=== PATIENT | female | born 1955 | race Two or more races ===

== ENCOUNTER 2018-06-18 13:40 | Observation (INO) | payer BC, OTHER ==
--- NOTE | 2018-06-18 13:59 | PDOC ---
History of Present Illness - General Stated Complaint: DIZZINESS Time Seen by Provider: 06/18/18 13:51 - History of Present Illness Initial Comments: 06/18/18 13:58 63 yo F with h/o HTN, HLD BIBA with dizziness. Patient reports acute onset of "room spinning," prior to arrival, after patient stood up from seating position on bus. Dizziness resolved spontaneously in ambulance vehicle. Patient reports dizziness was present with eyes closed. Endorsed one episode of bilious, non bloody emesis that is now resolved. Reports similar symptom of spinning sensation yesterday morning and afternoon lasting for 1 minute and resolving spontaneously. Patient denies hearing loss, headache, tinnitus, facial pain/weakness, slurred speech, palpitations, orthopnea, PND, leg pain/swelling, F,C, CP, SOB, urinary complaints, abdominal pain, diarrhea, constipation, weakness, sensory changes. PMHx: as noted above. Denies h/o CVA/TIA. ROS: as noted SHx: Denies Etoh, tobacco, IVDA. Denies recent travel, medication change. Allergies: PCN-Rash Past History - Past Medical History Allergies/Adverse Reactions: Allergies Allergy/AdvReac Type Severity Reaction Status Date / Time No Allergy Information Allergy Verified 06/18/18 14:09 Available Home Medications: Ambulatory Orders Amlodipine Besylate 5 mg PO DAILY 06/18/18 Simvastatin 20 mg PO DAILY 06/18/18 HTN: Yes Hypercholesterolemia: Yes - Suicide/Smoking/Psychosocial Hx Smoking History: Never smoked Hx Alcohol Use: No Substance Use Type: None Review of Systems - Review of Systems Comments:: 06/18/18 13:58 GENERAL/CONSTITUTIONAL: No fever or chills. No weakness. HEAD, EYES, EARS, NOSE AND THROAT: No change in vision. No ear pain or discharge. No sore throat. CARDIOVASCULAR: No chest pain or shortness of breath RESPIRATORY: No cough, wheezing, or hemoptysis. GASTROINTESTINAL: No nausea, vomiting, diarrhea or constipation. GENITOURINARY: No dysuria, frequency, or change in urination. MUSCULOSKELETAL: No joint or muscle swelling or pain. No neck or back pain. SKIN: No rash NEUROLOGIC: + Dizziness. No headache, loss of consciousness, or change in strength/sensation. ENDOCRINE: No increased thirst. No abnormal weight change HEMATOLOGIC/LYMPHATIC: No anemia, easy bleeding, or history of blood clots. ALLERGIC/IMMUNOLOGIC: No hives or skin allergy. *Physical Exam - Physical Exam Comments: 06/18/18 13:58 GENERAL: Awake, alert, and fully oriented, in no acute distress HEAD: No signs of trauma, normocephalic, atraumatic EYES: PERRLA, EOMI, sclera anicteric, conjunctiva clear ENT: Auricles normal inspection, hearing grossly normal, nares patent, oropharynx clear without exudates. Moist mucosa NECK: Normal ROM, supple, no lymphadenopathy, JVD, or masses LUNGS: No distress, speaks full sentences, clear to auscultation bilaterally HEART: Regular rate and rhythm, normal S1 and S2, no murmurs, rubs or gallops, peripheral pulses normal and equal bilaterally. ABDOMEN: Soft, nontender, normoactive bowel sounds. No guarding, no rebound. No masses EXTREMITIES : Normal inspection, Normal range of motion, no edema. No clubbing or cyanosis. NEUROLOGICAL: Absent nystagmus. Reproducible dizziness with head rotation. Cranial nerves II through XII grossly intact. Normal speech, normal gait, no focal sensorimotor deficits SKIN: Warm, Dry, normal turgor, no rashes or lesions noted ED Treatment Course - LABORATORY CBC & Chemistry Diagram: 06/18/18 14:40 06/18/18 14:40 Medical Decision Making - Medical Decision Making 06/18/18 14:20 63 yo F with h/o HTN, HLD BIBA with dizziness. VSS, AF, A&OX3. + Repositional dizziness with head rotation. Will asess for CVA/TIA, VBI, cardiac dysarrythmia , electrolyte abnml, metabolic and toxic derangements, acid-base disturbances, infection. Patient currently asymptomatic. Likley peripheral vs. central vertigo. Will reassess. ED Course: EKG: NSR with absent CHRISTI, STD. Normal interval duration and axis. + LVH. 06/18/18 16:12 Patient with vertigo. Meclizine 25 mg PO CBC,CMP: Unremarkable Trop: Neg 06/18/18 16:55 CTH :Periventricular white matter lucency, possible chronic microvascular dz. + Type I chiari Malformation. Reccomend nonemergent MRI. 06/18/18 17:20 Plan to admit obs. Pt. endorsed to sofiya Bae. Admit to Dr. Oliver. *DC/Admit/Observation/Transfer Diagnosis at time of Disposition: Vertigo - Discharge Dispostion Condition at time of disposition: Stable Decision to Admit order: Yes - Referrals Referrals: Evelina Yo [Primary Care Provider] - - Patient Instructions Printed Discharge Instructions: DI for Benign Paroxysmal Positional Vertigo Additional Instructions: Please return to the emergency department with any new or worsening symptoms or concerns. Please follow up with your primary care physician within 72 hours. - Post Discharge Activity - Attestations Physician Attestion: 06/18/18 13:59 I attest to the information provided in this note.
[2018-06-18 14:44] LABS: BASO % 0.7 % (0-2.0); EOS % 0.2 % (0-4.5); HEMATOCRIT 38.6 % (32.4-45.2); HEMOGLOBIN 13.5 GM/dL (10.7-15.3); LYMPH % 15.2 % (8-40); MCH 31.5 pg (25.7-33.7); MCHC 35.1 g/dl (32.0-36.0); MEAN CELL VOLUME 89.8 fl (80-96); MEAN PLT VOLUME 9.4 fl (7.5-11.1); NEUT % 78.9 % (42.8-82.8); PLATELET COUNT 272 K/MM3 (134-434); RDW 13.4 % (11.6-15.6)
[2018-06-18 15:18] LABS: ALBUMIN 4.2 g/dl (3.4-5.0); ALK PHOS 72 U/L (45-117); ANION GAP 10 MMOL/L (8-16); BILIRUBIN,TOTAL 0.3 mg/dL (0.2-1); BLOOD UREA NITROGEN 14 mg/dL (7-18); CALCIUM 9.2 mg/dL (8.5-10.1); CHLORIDE 101 mmol/L (98-107); CO2 25 mmol/L (21-32); CREATININE 0.6 mg/dL (0.55-1.3); GLUCOSE,RANDOM 115 mg/dL (74-106); POTASSIUM 3.9 mmol/L (3.5-5.1); SGOT/AST 23 U/L (15-37); SGPT/ALT 28 U/L (13-61); SODIUM 136 mmol/L (136-145)
--- NOTE | 2018-06-18 15:19 | EKG ---
Test Reason : Blood Pressure : / mmHG Vent. Rate : 070 BPM Atrial Rate : 070 BPM P-R Int : 174 ms QRS Dur : 072 ms QT Int : 420 ms P-R-T Axes : 036 -18 030 degrees QTc Int : 453 ms POOR DATA QUALITY, INTERPRETATION MAY BE ADVERSELY AFFECTED NORMAL SINUS RHYTHM VOLTAGE CRITERIA FOR LEFT VENTRICULAR HYPERTROPHY ABNORMAL ECG WHEN COMPARED WITH ECG OF 05-APR-2011 09:42, NO SIGNIFICANT CHANGE WAS FOUND Confirmed by Miguelangel Velásquez MD ([id number]) on 06/18/2018 3:19:40 PM Referred By: Confirmed By:Miguelangel Velásquez MD
[2018-06-18] MEDS ORDERED: MECLIZINE HCL 25 MG TABLET (FP) PO ONE (16:12)
[2018-06-18] MEDS ORDERED: MECLIZINE HCL 12.5 MG TABLET ONE (16:16)
[2018-06-18 16:29] LABS: URINE APPEARANCE CLEAR; URINE BILIRUBIN NEGATIVE (<2.0 mg/dL); URINE COLOR LTYELLOW; URINE GLUCOSE (UA) NEGATIVE (NEGATIVE); URINE KETONE NEGATIVE (NEGATIVE); URINE LEUK ESTERASE NEGATIVE (NEGATIVE); URINE NITRITE NEGATIVE (NEGATIVE); URINE PROTEIN NEGATIVE (NEGATIVE); URINE UROBILINOGEN NEGATIVE mg/dL (0.2-1.0)
[2018-06-18 17:11] LABS: URINE HYALINE CAST 1 /lpf; URINE MUCUS RARE
[2018-06-18] MEDS ORDERED: SODIUM CHLORIDE 0.9% 500 ML INFUS.BAG IV ONE (17:51)
[2018-06-18] MEDS ORDERED: LORazepam 2 MG/ML SDV VIAL ONE (18:00)
--- NOTE | 2018-06-18 18:02 | PDOC ---
Attending Attestation - Resident Resident Name: David Ivan - ED Attending Attestation I have performed the following: I have examined & evaluated the patient, The case was reviewed & discussed with the resident, I agree w/resident's findings & plan, Exceptions are as noted - HPI HPI: 06/18/18 15:57 The patient is a 63 year old female with a significant past medical history of HTN, HLD BIBA with complaint of acute onset of "room spinning" after standing up from seating position on bus just prior to arrival. The patient reports dizziness with eyes closed. She also reports posterior headache of gradual onset since this morning. She reports one episode of bilious, non bloody emesis that is now resolved. She states she experienced similar dizziness yesterday which resolved after about a minute. She denies experiencing these symptoms prior to yesterday. She denies any symptoms now. Patient denies hearing loss, tinnitus, facial pain/weakness, slurred speech, palpitations, orthopnea, PND, leg pain/swelling, F,C, CP, SOB, urinary complaints, abdominal pain, diarrhea, constipation, focal weakness, sensory changes. SHx: Denies Etoh, tobacco, IVDA. Denies recent travel, medication change. = - Physicial Exam PE: 06/18/18 17:59 GENERAL: Awake, alert, and fully oriented, appears uncomfortable HEAD: No signs of trauma EYES: PERRLA, EOMI, sclera anicteric, conjunctiva clear ENT: Hearing grossly normal, nares patent, oropharynx clear without exudates. Moist mucosa NECK: Normal ROM, supple, no lymphadenopathy, JVD, or masses LUNGS: Breath sounds equal, clear to auscultation bilaterally. No wheezes, and no crackles HEART: Regular rate and rhythm, normal S1 and S2, no murmurs, rubs or gallops ABDOMEN: Soft, nontender, normoactive bowel sounds. No guarding, no rebound. No masses EXTREMITIES: Normal range of motion, no edema. No clubbing or cyanosis. No cords , erythema, or tenderness BACK: No midline spinal tenderness in cervical/thoracic/lumbar region NEUROLOGICAL: Normal speech, cranial nerves intact, negative pronator drift, 5/ 5 strength in all 4 extremities, normal sensation to light touch in all 4 extremities, unable to cooperate with FNF due to dizziness, gait deferred SKIN: Warm, Dry, normal turgor, no rashes or lesions noted." - Medical Decision Making 06/18/18 18:03 63yo F hx HTN, HL presents to the ED with room spinning dizziness. Vitals wnl. Pt initially stating vertigo has resolved, now pt vertiginous again with gradual onset posterior headache. Pt threw up the meclizine. CTH neg. COncern for central etiology of vertigo, plan to treat with IV ativan 0.5mg, zofran and fluids and obtain MRI. Pt admitted to Dr. John for further mgmt. Case discussed in detail with admitting physician including history, physical exam and ancillary studies. Admitting physician has assumed care for the patient, will follow all pending diagnostics and will complete the evaluation and treatment.
[2018-06-18] MEDS ORDERED: ONDANSETRON 4 MG/2 ML VIAL ONE (18:05)
--- NOTE | 2018-06-18 19:14 | HP ---
Admitting History and Physical - Primary Care Physician PCP: none - Admission Chief Complaint: Dizziness, nausea and vomiting History of Present Illness: 63 y/o f with h/o HTN, and HLD presents to ED via Ambulance due to new onset vertigo. Pt reports symptoms started during the day on 06/17. Her symptoms subsided slightly but returned on the morning of 06/18, which severely interrupted her ADLs, there was progression of symptoms to include nausea and vomiting. Her symptoms are present both at rest and with ambulation. She denies CP/SOB, palpitations, fever, chills or myalgias. No recent travel or URI/sick contact. History Source: Patient, Medical Record Limitations to Obtaining History: No Limitations - Past Medical History OFFICE MESSENGER: No: Alzheimer's, CVA, Dementia, Migraine, Multiple Sclerosis, Peripheral Neuropathy, Parkinson's, Seizure, Syncope, TIA, Vertigo, Other Cardiovascular: Yes: HTN. No: AFIB, Aneurysm, Aortic Insufficiency, Aortic Stenosis, CAD, CHF, Deep Vein Thrombosis, Hyperlipdemia, MA, Mitral Insufficiency, Mitral Stenosis, Murmur, Pulmonary Hypertension, Other Pulmonary: No: Asthma, Bronchitis, Cancer, COPD, O2 Dependent, Pneumonia, Previously Intubated, Pulmonary Embolus, Pulmonary Fibrosis, Sleep Apnea, Other Gastrointestinal: No: Ascites, Cancer, Constipation, Crohn's Disease, Diverticulitis, Diverticulosis, Esophageal Varices, Gastritis, GERD, GI Bleed, Hemorrhoids, Hiatal Hernia, Inflamatory Bowel Disease, Irritable Bowel Disease, Pancreatitis, Peptic Ulcer Disease, Ulcerative Colitis, Other Hepatobiliary: No: Cirrhosis, Cholelithiasis, Cholecystitis, Choledocholithiasis , Hepatitis A, Hepatitis B, Hepatitis C, Other Renal/: No: Renal Failure, Renal Inusuff, BPH, Cancer, Hematuria, Hemodialysis , Neurogenic Bladder, Renal Calculi, UTI, Other ...: 2 ...Para: 2 Heme/Onc: No: Anemia, B12 Deficiency, Bleeding Disorder, Cancer, Current Chemotherapy, Current Radiation Therapy, Hemochromatosis, Hypercoaguable State, Myeloproliferative Synd, Sickle Cell Disease, Sickle Cell Trait, Thrombocytopenia, Other Infectious Disease: No: AIDS, C-Diff, Herpes Zoster, HIV, MRSA, STD's, Tuberculosis, VREF, Other Psych: No: Addictions, Anxiety, Bipolar, Depression, Panic, Psychosis, Schizophrenia, Other Musculoskeletal: No: Bursitis, Chronic low back pain, Hemiparesis, Hemiplegia, Osteoarthritis, Paraplegia, Other Rheumatology: No: Fibromyalgia, Gout, Lupus, Rheumatoid Arthritis, Sarcoidosis, Vasculitis, Other Endocrine: No: Koppel's Disease, Kecia's Disease, Diabetes Insipidus, Diabetes Mellitus, Hyperparathyroidism, Hyperthyroidism, Hypothyroidism, Osteopenia, SIADH, Other Dermatology: No: Basal Cell, Cellulitis, Eczema, Melanoma, Psoriasis, Squamous Cell, Other Additional Past Medical History: Hyperlipidemia - Past Surgical History Past Surgical History: Yes: None - Advance Directives Advance Directives: Yes: Health Care Proxy (DAughter Amy Rogers: [phone]) - Smoking History Smoking history: Never smoked Have you smoked in the past 12 months: No - Alcohol/Substance Use Hx Alcohol Use: No History of Substance Use: reports: None - Social History Usual Living Arrangement: Yes: With Spouse (resides in [place] apartment) ADL: Independent 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 History of Recent Travel: No Home Medications - Allergies Allergies/Adverse Reactions: Allergies Allergy/AdvReac Type Severity Reaction Status Date / Time Penicillins Allergy Severe Hives Verified 06/18/18 21:11 - Home Medications Home Medications: Ambulatory Orders Amlodipine Besylate 5 mg PO DAILY 06/18/18 Simvastatin 20 mg PO DAILY 06/18/18 Family Disease History - Family Disease History Family Disease History: Heart Disease: Father (), Mother (HTN) Review of Systems - Review of Systems Constitutional: denies: No Symptoms, Chills, Diaphoresis, Fever, Lethargy, Loss of Appetite, Malaise, Night Sweats, Unintentional Wgt. Loss, Weakness, Other Eyes: reports: No Symptoms HENT: reports: No Symptoms Neck: reports: No Symptoms Cardiovascular: reports: No Symptoms Respiratory: reports: No Symptoms Gastrointestinal: reports: No Symptoms Genitourinary: reports: No Symptoms Musculoskeletal: reports: No Symptoms Integumentary: reports: No Symptoms Neurological: reports: Dizziness, Headache, Unsteady Gait, Weakness. denies: No Symptoms, Change in LOC, Change in Speech, Confusion, Incoordination, Numbness, Parasthesia, Pre-Existing Deficit, Seizure, Syncope, Tremors, Other Endocrine: denies: No Symptoms, Excessive Sweating, Flushing, Increased Hunger, Increased Thirst, Intolerance to Cold, Intolerance to Heat, Unexplained Weight Gain, Unexplained Weight Loss, Other Hematology/Lymphatic: denies: No Symptoms, Easily Bruised, Excessive Bleeding, Swollen Glands, Other Psychiatric: reports: No Symptoms Physical Examination Vital Signs: Vital Signs Temperature 98.1 F 06/18/18 14:07 Pulse Rate 80 06/18/18 16:31 Respiratory Rate 17 06/18/18 16:31 Blood Pressure 131/69 06/18/18 16:31 O2 Sat by Pulse Oximetry (%) 96 06/18/18 16:31 Constitutional: Yes: Well Nourished, Calm Eyes: Yes: Conjunctiva Clear, PERRL (+ lateral nystagmus, sclera anicteric). No : WNL, EOM Intact, Cataracts, Diplopia, Occular Prosthesis, Ptosis, Sclera Icterus, Tearing, Other HENT: Yes: Atraumatic, Normocephalic. No: WNL, Drooling, Epistaxis, Hoarseness , Nasal Congestion, Pharyngeal Erythema, Rhinnorhea, Thrush, Tonsillar Exudate, Other Neck: Yes: Supple. No: WNL, Trachea Midline, Decreased ROM, Lymphadenopathy, Rigid, Tenderness, Thyromegaly, Other Cardiovascular: Yes: Regular Rate and Rhythm, Murmur (3/6 SM A/P region). No: WNL, Bradycardia, Tachycardia, Pulse Irregular, Bruit, JVD, Gallop, Rub, S1, S2 , S3, S4, Varicosities, Other Respiratory: Yes: Regular, CTA Bilaterally. No: WNL, Accessory Muscle Use, Bradypnea, Isidoro-Thomas, Cough, Diminished, Dullness, Hyperresonant, Intubated , Kussmaul, Mechanically Ventilated, On BiPap, On Nasal O2, On Venti-Mask, Orthopnea, Poor Air Entry, Rales, Rhonchi, SOB, SOB on Exertion, Stridor, Tachypnea, Wheezes, Other Gastrointestinal: Yes: Normal Bowel Sounds, Soft. No: WNL, Abdomen, Obese, Ascites, Distention, Hematemesis, Hemorrhoids, Hepatomegaly, Hernia, Hyperactive Bowel Sounds, Hypoactive Bowel Sounds, Melena, Palpable Mass, Pulsatile Mass, Rectal Bleeding, Splenomegaly, Tenderness, Tenderness, Epigastrium, Tenderness, Rebound, Vomiting, Other ...Rectal Exam: Yes: Deferred Musculoskeletal: Yes: WNL Extremities: Yes: WNL Edema: No Peripheral Pulses WNL: Yes Peripheral Pulses: Left Radial: 2+, Right Radial: 2+, Left Doralis Pedis: 2+, Right Dorsalis Pedis: 2+ Integumentary: Yes: WNL Neurological: Yes: Alert, Oriented, Unsteady Gait (nystagmus++) ...Motor Strength: WNL Psychiatric: Yes: Alert, Oriented Labs: CBC, BMP 06/18/18 14:40 06/18/18 14:40 Imaging - Results Cat Scan: Report Reviewed (CT head 06/18 Impression: Mild volume loss. No gross acute intracranail pathology is identified. Questionable periventricular white matter lucency that may be on the basis of chronic microvascular ischemic disease changes. Chiari malformation type 1 for which correlation with an MRI of the brain is needed. Reported by Dr. Annie Monet) MRI: Pending EKG: Report Reviewed (EKG 06/18/2018 NSR 70bpm. LVH by voltage criteria. No significant changes noted when compared to ECG of 04/05/2011) Problem List - Problems (1) HTN (hypertension) Assessment/Plan: c/w norvasc 5mg daily cardiac diet Code(s): I10 - ESSENTIAL (PRIMARY) HYPERTENSION (2) HLD (hyperlipidemia) Assessment/Plan: simvastatin 20mg daily f/u lipid panel and A1c start asa 81mg daily Code(s): E78.5 - HYPERLIPIDEMIA, UNSPECIFIED (3) Chiari malformation type I Assessment/Plan: neuro consult in AM (4) Vertigo Assessment/Plan: PRN reglan for nausea, vomiting and dizziness bedrest overnight NS @ 50ml/hr x 1L Code(s): R42 - DIZZINESS AND GIDDINESS Assessment/Plan PPX -SC heparin BID for DVT prophylaxis -fall precautions due to unsteady gait DISPO: -full code Visit type - Emergency Visit Emergency Visit: Yes ED Registration Date: 06/18/18 Care time: The patient presented to the Emergency Department on the above date and was hospitalized for further evaluation of their emergent condition. - New Patient This patient is new to me today: Yes Date on this admission: 06/18/18 - Critical Care Critical Care patient: No
[2018-06-18] MEDS ORDERED: DOCUSATE SODIUM 100 MG CAPSULE (FP) PO PRN (19:44)
[2018-06-18] MEDS ORDERED: SODIUM CHLORIDE 1,000 ML IV SCH (20:00)
[2018-06-18] MEDS ORDERED: ONDANSETRON 4 MG/2 ML VIAL IVPUSH ONE (20:33)
[2018-06-18] MEDS: ASPIRIN 81 MG CHEWABLE TABLETS PO ONE ×2 (20:42→21:11)
[2018-06-18] MEDS: amLODIPine BESYLATE 5 MG TABLET (FP) PO ONE ×2 (20:42→21:10)
[2018-06-18] MEDS ORDERED: HEPARIN NA (PORCINE) 5,000 UNITS/ML 1ML VIAL SQ STA (21:36)
[2018-06-18] MEDS ORDERED: SENNOSIDES 8.6MG TABLET (FP) PO PRN (22:00)
[2018-06-18] MEDS: ATORVASTATIN CA 10 MG TABLET (FP) PO SCH (22:47)
[2018-06-18 23:20] VITALS: BMI 24.3
[2018-06-19] MEDS ORDERED: MECLIZINE HCL 25 MG TABLET (FP) PO ONE (06:09)
[2018-06-19] MEDS ORDERED: ONDANSETRON 4 MG/2 ML VIAL IVPUSH ONE (06:13)
[2018-06-19] MEDS ORDERED: PT OWN MED DRAWER 7, Y5N ONE (06:50)
[2018-06-19 08:11] LABS: ANION GAP 11 MMOL/L (8-16); BLOOD UREA NITROGEN 11 mg/dL (7-18); CALCIUM 8.9 mg/dL (8.5-10.1); CHLORIDE 104 mmol/L (98-107); CO2 23 mmol/L (21-32); CREATININE 0.6 mg/dL (0.55-1.3); GLUCOSE,RANDOM 107 mg/dL (74-106); POTASSIUM 3.8 mmol/L (3.5-5.1); SODIUM 138 mmol/L (136-145)
[2018-06-19] MEDS ORDERED: ONDANSETRON 4 MG/2 ML VIAL IVPUSH PRN (08:54)
[2018-06-19] MEDS: amLODIPine BESYLATE 5 MG TABLET (FP) PO SCH (10:13)
[2018-06-19] MEDS: MECLIZINE HCL 25 MG TABLET (FP) PO SCH ×3 (13:01→23:09)
[2018-06-19] MEDS: DEXTROSE 5%-0.45% SALINE 1,000 ML IV SCH (14:03)
--- NOTE | 2018-06-19 15:57 | PN ---
Physical Exam: SUBJECTIVE: Patient seen and examined, reporting persistent nausea and dizziness , not improved from when she was admitted. She has not been able to eat much food and has thrown up small amounts of clear liquid intermittently. OBJECTIVE: Vital Signs Period Temp Pulse Resp BP Sys/Tyson Pulse Ox Last 24 Hr 97.6 F-98.4 F 66-80 17-20 129-143/65-78 96-97 GENERAL: Ill, weak appearing female, fully oriented HEAD: Normal with no signs of trauma. EYES: +Nystagmus b/l, arcus senilis b/l, PERRL, sclera anicteric, conjunctiva clear. No ptosis. ENT: +NC Nares patent, oropharynx clear without exudates, moist mucous membranes. NECK: Trachea midline, full range of motion, supple. LUNGS: Breath sounds equal, clear to auscultation bilaterally, no wheezes, no crackles, no accessory muscle use. HEART: Regular rate and rhythm, S1, S2 without murmur, rub or gallop. ABDOMEN: Soft, nontender, nondistended, normoactive bowel sounds, no guarding, no rebound, no hepatosplenomegaly, no masses. EXTREMITIES: 2+ pulses, warm, well-perfused, no edema. NEUROLOGICAL: No facial droop, tongue midline. Normal speech, gait not observed. PSYCH: Normal mood, normal affect. SKIN: Warm, dry, normal turgor, no rashes or lesions noted Laboratory Results - last 24 hr 06/18/18 06/19/18 06/19/18 16:08 06:15 06:15 ESR 23 Sodium 138 Potassium 3.8 Chloride 104 Carbon Dioxide 23 Anion Gap 11 BUN 11 Creatinine 0.6 Creat Clearance w eGFR > 60 Random Glucose 107 H Hemoglobin A1c % Calcium 8.9 Triglycerides Cancelled Cholesterol Cancelled Total LDL Cholesterol Cancelled HDL Cholesterol Cancelled Urine Color Ltyellow Urine Appearance Clear Urine pH 6.0 Ur Specific [place]lett 1.011 Urine Protein Negative Urine Glucose (UA) Negative Urine Ketones Negative Urine Blood 1+ H Urine Nitrite Negative Urine Bilirubin Negative Urine Urobilinogen Negative Ur Leukocyte Esterase Negative Urine WBC (Auto) <1 Urine RBC (Auto) 4 Hyaline Casts 1 Urine Mucus Rare 06/19/18 06:15 ESR Sodium Potassium Chloride Carbon Dioxide Anion Gap BUN Creatinine Creat Clearance w eGFR Random Glucose Hemoglobin A1c % 5.3 Calcium Triglycerides Cholesterol Total LDL Cholesterol HDL Cholesterol Urine Color Urine Appearance Urine pH Ur Specific Haslett Urine Protein Urine Glucose (UA) Urine Ketones Urine Blood Urine Nitrite Urine Bilirubin Urine Urobilinogen Ur Leukocyte Esterase Urine WBC (Auto) Urine RBC (Auto) Hyaline Casts Urine Mucus Active Medications Generic Name Dose Route Start Last Admin Trade Name Freq PRN Reason Stop Dose Admin Amlodipine Besylate 5 mg 06/19/18 10:00 06/19/18 10:13 Norvasc - PO 5 mg DAILY GEMINI Administration Atorvastatin Calcium 10 mg 06/18/18 22:45 06/18/18 22:47 Lipitor - PO Not Given HS GEMINI Docusate Sodium 100 mg 06/18/18 19:44 Colace - PO Q8H PRN CONSTIPATION Dextrose/Sodium Chloride 1,000 mls @ 75 mls/hr 06/19/18 13:45 06/19/18 14:03 D5-1/2ns - IV 75 mls/hr ASDIR GEMINI Administration Meclizine HCl 25 mg 06/19/18 12:00 06/19/18 13:01 Antivert - PO 25 mg Q6HPO GEMINI Administration Ondansetron HCl 4 mg 06/19/18 08:54 Zofran Injection IVPUSH Q4H PRN NAUSEA AND/OR VOMITING Senna 2 tab 06/18/18 22:00 Senna - PO HS PRN CONSTIPATION MRI of brain without contrast 06/18/18: There is no evidence of abnormal restricted diffusion in the brain to suggest acute or subacute infarction. 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 Tonsillar ectopia. No abnormalities are seen in the region of the CP angles, no intracanicular, CP angle lesion is seen within the limitation of noncontrast examination.. No evidence of opacification of the mastoid air cells. ASSESSMENT/PLAN: 63 year old female with a PMH significant for HTN and HLD presented to the ED due to new onset dizziness, nausea, vomiting x 1 day. She was admitted for treatment of vertigo. BPPV - Meclazine 25 mg q 6 hrs - Zofran 4 mg IV q hrs PRN for nausea - F/u with ENT OP if symptoms persist - Neuro consult pending HTN - Amlodipine 5 mg qday HLD - Atorvastatin 10 mg PO QHS Constipation - Senna 2 tabs PO QHS PRN FEN - D5 1/2 NS x 75cc/hr - Electrolytes replete as indicated - Clear liquid diet DVT Prophylaxis - Heparin SQ Dispo: pt currently requires further inpatient care but may be suitable for d/c tomorrow. FULL CODE Visit type - Emergency Visit Emergency Visit: No - New Patient This patient is new to me today: Yes Date on this admission: 06/19/18 - Critical Care Critical Care patient: No
--- NOTE | 2018-06-19 21:04 | CONSULT ---
Consult - text type - Consultation Consultation Note: NEUROLOGY CONSULTATION is greatly appreciated: This 63 yo RH woman with h/o HTN and Chol, Is maintained on Amlodipine Besylate 5 mg PO DAILY and Simvastatin 20 mg PO DAILY. 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 Yesterday, severe vertigo, nausea and unsteadiness recurred on a public bus and persisted. In ER CT of head (reviewed) was normal. Yesterday the patient had multiple recurrent episodes of spinning with nausea and vomiting. Unable to walk without assistance. 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 DEMETRA: No bruits. Cor reg. No evidence of external head trauma. NEURO: MS/speech: Normal CN II-XII: sig for coarse, right-beating, conjugate, horizontal nystagmus on right gaze and upgaze. Motor: no drift or tremor. Normal strength. Reduced AIDEN's R>L. Normal reflexes. Toes downgoing. Coord: Mod left FTN< HTS dystaxia Sensory normal Gait: Unsteady, shuffling. IMP: Acute left cerebellar CVA SUGGEST: Normalize BP Add clopidogrel 75 mg PO qd. PT eval and Rx. Pt will benefit from Inpatient Rehab (Consult for Thien evaluation). Thank you very much, Nader Dickerson MD
[2018-06-19] MEDS: ATORVASTATIN CA 10 MG TABLET (FP) PO SCH (23:09)
[2018-06-20] MEDS: DEXTROSE 5%-0.45% SALINE 1,000 ML IV SCH (05:39)
[2018-06-20] MEDS: MECLIZINE HCL 25 MG TABLET (FP) PO SCH ×3 (05:39→17:25)
[2018-06-20 06:45] LABS: HEMATOCRIT 38.4 % (32.4-45.2); HEMOGLOBIN 12.9 GM/dL (10.7-15.3); MCH 30.2 pg (25.7-33.7); MCHC 33.5 g/dl (32.0-36.0); MEAN PLT VOLUME 9.4 fl (7.5-11.1); PLATELET COUNT 252 K/MM3 (134-434); RBC 4.26 M/mm3 (3.60-5.2); RDW 13.4 % (11.6-15.6); WHITE BLOOD COUNT 6.2 K/mm3 (4.0-10.0)
[2018-06-20 07:15] LABS: ANION GAP 9 MMOL/L (8-16); BLOOD UREA NITROGEN 9 mg/dL (7-18); CALCIUM 8.4 mg/dL (8.5-10.1); CHLORIDE 102 mmol/L (98-107); CO2 28 mmol/L (21-32); CREATININE 0.7 mg/dL (0.55-1.3); GLUCOSE,RANDOM 96 mg/dL (74-106); MAGNESIUM 2.2 mg/dL (1.8-2.4); POTASSIUM 3.6 mmol/L (3.5-5.1); SODIUM 139 mmol/L (136-145)
[2018-06-20] MEDS ORDERED: LORazepam 0.5 MG TABLET PO PRN ×2 (10:04→15:00)
[2018-06-20] MEDS: amLODIPine BESYLATE 5 MG TABLET (FP) PO SCH (10:35)
--- NOTE | 2018-06-20 11:58 | PN ---
Physical Exam: SUBJECTIVE: Patient seen and examined, she reports feeling better than yesterday ; nausea and vomiting have subsided. She has been able to eat some jello and soup. Her dizziness is better too, but she feels it sometimes in certain positions. Seen by neurologist Dr. Jaquez yesterday. OBJECTIVE: Vital Signs Period Temp Pulse Resp BP Sys/Tyson Pulse Ox Last 24 Hr 97.9 F-98.2 F 59-76 18-18 126-138/57-75 96-97 GENERAL: Less ill appearing than yesterday, fully oriented HEAD: Normal with no signs of trauma. EYES: +Nystagmus improved, no longer at res, only seen with right gaze, b/l, arcus senilis b/l, PERRL, sclera anicteric, conjunctiva clear. No ptosis. ENT: +NC Nares patent, oropharynx clear without exudates, moist mucous membranes. NECK: Trachea midline, full range of motion, supple. LUNGS: Breath sounds equal, clear to auscultation bilaterally, no wheezes, no crackles, no accessory muscle use. HEART: Regular rate and rhythm, S1, S2 without murmur, rub or gallop. ABDOMEN: Soft, nontender, nondistended, normoactive bowel sounds, no guarding, no rebound, no hepatosplenomegaly, no masses. EXTREMITIES: 2+ pulses, warm, well-perfused, no edema. NEUROLOGICAL: No facial droop, tongue midline. Normal speech, gait not observed. PSYCH: Normal mood, normal affect. SKIN: Warm, dry, normal turgor, no rashes or lesions noted Laboratory Results - last 24 hr 06/20/18 06/20/18 05:20 05:20 WBC 6.2 RBC 4.26 Hgb 12.9 Hct 38.4 MCV 90.0 MCH 30.2 MCHC 33.5 RDW 13.4 Plt Count 252 MPV 9.4 Sodium 139 Potassium 3.6 Chloride 102 Carbon Dioxide 28 Anion Gap 9 BUN 9 Creatinine 0.7 Creat Clearance w eGFR > 60 Random Glucose 96 Calcium 8.4 L Magnesium 2.2 Active Medications Generic Name Dose Route Start Last Admin Trade Name Freq PRN Reason Stop Dose Admin Amlodipine Besylate 5 mg 06/19/18 10:00 06/20/18 10:35 Norvasc - PO 5 mg DAILY GEMINI Administration Atorvastatin Calcium 10 mg 06/18/18 22:45 06/19/18 23:09 Lipitor - PO 10 mg HS GEMINI Administration Docusate Sodium 100 mg 06/18/18 19:44 Colace - PO Q8H PRN CONSTIPATION Dextrose/Sodium Chloride 1,000 mls @ 75 mls/hr 06/19/18 13:45 06/20/18 05:39 D5-1/2ns - IV 75 mls/hr ASDIR GEMINI Administration Lorazepam 0.5 mg 06/20/18 10:04 06/20/18 10:35 Ativan - PO 0.5 mg TID PRN Administration ANXIETY Meclizine HCl 25 mg 06/19/18 12:00 06/20/18 05:39 Antivert - PO 25 mg Q6HPO GEMINI Administration Ondansetron HCl 4 mg 06/19/18 08:54 Zofran Injection IVPUSH Q4H PRN NAUSEA AND/OR VOMITING Senna 2 tab 06/18/18 22:00 Senna - PO HS PRN CONSTIPATION MRI of brain without contrast 06/18/18: There is no evidence of abnormal restricted diffusion in the brain to suggest acute or subacute infarction. 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 Tonsillar ectopia. No abnormalities are seen in the region of the CP angles, no intracanicular, CP angle lesion is seen within the limitation of noncontrast examination.. No evidence of opacification of the mastoid air cells. ASSESSMENT/PLAN: 63 year old female with a PMH significant for HTN and HLD presented to the ED due to new onset dizziness, nausea, vomiting x 1 day. She was admitted for treatment of vertigo. Acute left cerebellar CVA - Seen by neurologist Dr. Jaquez yesterday. 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 - Minor neuro deficits on exam: dystaxia and usteady gait - MRA pending from today - Start Clopidogrel 75 mg PO qd - PT consult - Recommended inpatient rehab at [place] [facility] - Meclazine 25 mg q 6 hrs - Zofran 4 mg IV q hrs PRN for nausea - Start Ativan 0.5 mg PO q6h PRN - F/u with ENT OP if symptoms persist HTN - Amlodipine 5 mg qday HLD - Atorvastatin 10 mg PO QHS Constipation - Senna 2 tabs PO QHS PRN FEN - D5 1/2 NS x 75cc/hr - Electrolytes replete as indicated - Clear liquid diet DVT Prophylaxis - Heparin SQ Dispo: pt currently requires further inpatient care but may be suitable for d/c tomorrow. FULL CODE Visit type - Emergency Visit Emergency Visit: No - New Patient This patient is new to me today: No - Critical Care Critical Care patient: No
[2018-06-20] MEDS ORDERED: ONDANSETRON 4 MG/2 ML VIAL IVPUSH PRN (15:00)
[2018-06-20] MEDS ORDERED: DOCUSATE SODIUM 100 MG CAPSULE (FP) PO PRN (15:00)
[2018-06-20] MEDS ORDERED: SENNOSIDES 8.6MG TABLET (FP) PO PRN (15:00)
[2018-06-20] MEDS ORDERED: ATORVASTATIN CA 10 MG TABLET (FP) PO SCH (22:00)
[2018-06-21] MEDS: MECLIZINE HCL 25 MG TABLET (FP) PO SCH ×2 (00:27→06:11)
[2018-06-21] MEDS: amLODIPine BESYLATE 5 MG TABLET (FP) PO SCH ×2 (08:56→09:07)
[2018-06-21] MEDS ORDERED: MECLIZINE HCL 25 MG TABLET (FP) PO PRN (09:22)
--- NOTE | 2018-06-21 09:35 | DS ---
Physical Exam: SUBJECTIVE: Patient seen and examined. She reports dizziness and nausea have completely resolved. She is tolerating a regular diet and is ready to be discharged to home today. OBJECTIVE: Vital Signs Period Temp Pulse Resp BP Sys/Tyson Pulse Ox Last 24 Hr 97.6 F-98.4 F 60-89 18-19 130-156/72-87 96-97 PHYSICAL EXAM GENERAL: Less ill appearing than yesterday, fully oriented HEAD: Normal with no signs of trauma. EYES: +Nystagmus improved, no longer at rest, only seen with right gaze, b/l, arcus senilis b/l, PERRL, sclera anicteric, conjunctiva clear. No ptosis. ENT: +NC Nares patent, oropharynx clear without exudates, moist mucous membranes. NECK: Trachea midline, full range of motion, supple. LUNGS: Breath sounds equal, clear to auscultation bilaterally, no wheezes, no crackles, no accessory muscle use. HEART: Regular rate and rhythm, S1, S2 without murmur, rub or gallop. ABDOMEN: Soft, nontender, nondistended, normoactive bowel sounds, no guarding, no rebound, no hepatosplenomegaly, no masses. EXTREMITIES: 2+ pulses, warm, well-perfused, no edema. NEUROLOGICAL: No facial droop, tongue midline. Normal speech, gait not observed. PSYCH: Normal mood, normal affect. SKIN: Warm, dry, normal turgor, no rashes or lesions noted LABS HOSPITAL COURSE: Date of Admission:06/18/18 Date of Discharge: 06/21/18 MRI of brain without contrast 06/18/18: There is no evidence of abnormal restricted diffusion in the brain to suggest acute or subacute infarction. 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 Tonsillar ectopia. No abnormalities are seen in the region of the CP angles, no intracanicular, CP angle lesion is seen within the limitation of noncontrast examination.. No evidence of opacification of the mastoid air cells. MRA of brain without contrast 06/20/18: No abnormalities. ASSESSMENT/PLAN: 63 year old female with a PMH significant for HTN and HLD presented to the ED due to new onset dizziness, nausea, vomiting x 1 day. She was admitted for treatment of vertigo. Acute left cerebellar CVA - Seen by neurologist Dr. 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 Gonzalez, [place] were admitted to [facility] from 06/18 - 06/21 for vertigo. You were treated with Meclizine and Ativan for dizziness and Zofran for nausea. You had an MRI which showed "acute deep left cerebellar infarct with left internal capsule lacunar infarct," which are areas where there has been brain tissue due to lack of blood due to a blockage. You were seen by neurology who ordered an MRA which images the blood vessels of the brain, this study showed no abnormalities. If dizziness returns, make an appointment to see an ENT specialist. Please continue to take your home medications (Amlodipine and Simvastatin). Start new medications: 1. Aspirin 81 mg daily 2. Meclizine 50 mg by mouth every 12 hours NEEDED if dizziness returns. Please return to the emergency department with any new or worsening symptoms or concerns. Please follow up with your primary care physician within 72 hours. [facility] [phone] Referrals: Evelina Yo [Primary Care Provider] - Disposition: HOME - Home Medications Comprehensive Discharge Medication List: Ambulatory Orders Amlodipine Besylate 5 mg PO DAILY 06/18/18 Simvastatin 20 mg PO DAILY 06/18/18 Aspirin [ASA -] 81 mg PO DAILY 30 Days #30 tab.chew 06/21/18 Meclizine HCl [Antivert -] 50 mg PO Q12H PRN #30 tablet 06/21/18 This patient is new to me today: No Emergency Visit: No Critical Care patient: No - Discharge Referral Referred to [facility] Med P.C.: No
[2018-06-21] MEDS ORDERED: ASPIRIN 81 MG CHEWABLE TABLETS PO SCH (10:00)
[2018-06-21 11:11] VITALS: BP 138/66; PULSE 69; TEMP 98
== END 2018-06-21 11:30 | disposition home or self-care (01) ==
LOC: JER 13:40 → JERBED 17:20 → J7W 20:07 → J4S 06-20 12:15
PROVIDERS: ADMIT Internal Medicine; ATTEND Nurse Practitioner Adult Health
PROC: 3E033GC Introduction of Other Therapeutic Substance into Peripheral Vein, Percutaneous Approach (ICD-10-PCS; principal; 2018-06-18)
PROC: 3E0337Z Introduction of Electrolytic and Water Balance Substance into Peripheral Vein, Percutaneous Approach (ICD-10-PCS; 2018-06-18)
DX: G46.4 Cerebellar stroke syndrome (principal); H81.10 Benign paroxysmal vertigo, unspecified ear; I10 Essential (primary) hypertension; E78.5 Hyperlipidemia, unspecified; Q07.00 Arnold-Chiari syndrome without spina bifida or hydrocephalus; K59.00 Constipation, unspecified; Z88.0 Allergy status to penicillin
CPT/HCPCS: 36415; 70450-TC; 70544-TC; 70551-TC; 80048; 80053; 81003; 81015; 82550; 83036; 83735; 84484; 85025; 85027; 85651; 86038; 93005; 93010; 99283-25; G0378; J7030